=== PATIENT | female | born 2000 | race Caucasian/White ===

== ENCOUNTER → 2023-12-26 | Outpatient (REF) | payer OTHER ==
[2023-12-28 13:55] LABS: HPV APTIMA Not Detected (Not Detected)
== END ==
LOC: M SFHCWAGY 12:48
PROVIDERS: ATTEND Nurse Practitioner Family
DX: Z12.4 Encounter for screening for malignant neoplasm of cervix (principal); R87.615 Unsatisfactory cytologic smear of cervix
CPT/HCPCS: 87624; G0123

== ENCOUNTER → 2023-12-28 | Outpatient (CLI) | payer OTHER | LOC: M WHC 08:10 → EDUNIT# 09:15 | PROVIDERS: ATTEND Family Medicine | DX: K40.91 Unilateral inguinal hernia, without obstruction or gangrene, recurrent (principal) ==

== ENCOUNTER → 2024-03-29 | Outpatient (CLI) | payer OTHER ==
[~2024-03-29] MED LIST: GASTROGRAFIN SOLUTION 30ML As Ordered ONE; ISOVUE-370 76% 100ML VIAL As Ordered ONE
== END ==
LOC: M RAD 08:29
PROVIDERS: ATTEND Surgery
DX: K40.90 Unilateral inguinal hernia, without obstruction or gangrene, not specified as recurrent (principal)

== ENCOUNTER → 2025-01-08 | Outpatient (REF) | payer OTHER ==
[2025-01-10 14:13] LABS: HPV APTIMA Not Detected (Not Detected)
== END ==
LOC: M SFHCWAGY 13:14
PROVIDERS: ATTEND Nurse Practitioner Family
DX: Z12.4 Encounter for screening for malignant neoplasm of cervix (principal); R87.615 Unsatisfactory cytologic smear of cervix
CPT/HCPCS: 87624; G0123

== ENCOUNTER → 2025-06-11 | Outpatient (CLI) | payer OTHER ==
[2025-06-11 10:59] LABS: PLATELET COUNT, AUTOMATED 227 10^3/uL (150-450)
[2025-06-11 11:24] LABS: FREE T4 1.28 NG/DL (0.89-1.76)
[2025-06-11 11:25] LABS: VITAMIN B12 LEVEL 511 PG/ML (211-911)
[2025-06-11 11:28] LABS: ALT/SGPT 16 U/L (7.0-40); AST/SGOT 15 U/L (<34); C REACTIVE PROTEIN QUANTITATIV < 0.50 MG/DL (<1.0); CALCIUM LEVEL 9.0 MG/DL (8.5-10.1); CARBON DIOXIDE LEVEL 28 MMOL/L (20-31); CHLORIDE LEVEL 105 MMOL/L (98-107); CREATININE FOR GFR 0.83 MG/DL (0.55-1.30); GLOMERULAR FILTRATION RATE > 90.0 (>60); POTASSIUM SERUM 4.4 MMOL/L (3.5-5.1); SODIUM LEVEL 142 MMOL/L (136-145)
[2025-06-11 11:50] LABS: ESTIMATED AVERAGE GLUCOSE 97.0 MG/DL (60-110)
== END ==
LOC: M PLALAB 08:18
PROVIDERS: ATTEND Family Medicine
DX: R20.2 Paresthesia of skin (principal)

== ENCOUNTER → 2025-06-11 | Outpatient (REF) | payer OTHER | LOC: M SFHCPLAZ 07:58 | PROVIDERS: ATTEND Family Medicine | DX: R20.2 Paresthesia of skin (principal) ==